=== PATIENT | male | born 1970 | race Caucasian/White ===

== ENCOUNTER 2017-09-12 09:06 | Emergency (ER) | payer OTHER, SELFPAY ==
[2017-09-12 09:06] VITALS: BP 129/80; PULSE 84; RESP 14; TEMP 36.1; BMI 31.5
--- NOTE | 2017-09-12 09:24 | RAD_ITS ---
STUDY: X-RAY - LEFT HAND, ATTENTION FIFTH FINGER REASON FOR EXAM: Male, 47 years old. Crush injury. TECHNIQUE: 3 view(s) of the finger were obtained. COMPARISON: None. FINDINGS: Normal metacarpal head. Normal metacarpophalangeal joint. Normal proximal phalanx. Normal middle phalanx. Normal distal phalanx. Normal proximal interphalangeal joint. Normal distal interphalangeal joint. Soft tissue injury. RAD/Finger(s) Min 2 Views IMPRESSION: Soft tissue injury. No fracture or dislocation is seen. Electronically Signed: Erik Barahona MD at 10:40 EST Tel [phone], Service support ,
[2017-09-12] MEDS: Diphth,Pertuss(Acell),Tet Vac 0.5 ML Vial IM (09:37)
--- NOTE | 2017-09-12 10:02 | ED.VISSUMM ---
- ER Visit Summary Date of Service: 09/12/17 Chief Complaint: Injury volar surface left little finger History of Present Illness: The patient is a 47 M is right-handed presents with injury to the left little finger. This occurred at work. Immunizations unknown. He denies paresthesia, anesthesia or motor weakness. He denies any allergies. Physical Examination: There is evulsion of the epidermis on the volar surface of the left little finger. There is a superficial laceration less than 0.5 cm. There is no subungual hematoma. The extensor minimize tendon is intact. The flexor digitorum superficialis and flexor digitorum profundus are intact. Capillary refill is normal. Sensation is normal. Test Results: Three-view x-ray of the left little finger was obtained interpreted by me as negative for fracture. There is soft tissue defect noted. Emergency Department Course and Treatment: Immunization for tetanus and wound care Treatment Plan: Follow-up with corporate care Disposition: Discharge to home Impression: Crush injury left little finger with superficial avulsion and small laceration, initial encounter This note was generated with [email or web address] dictation software. It may contain incorrect words, spelling, and punctuation that were not noted in review of the chart prior to signing ED Disposition - Plan for ED Patient: Disposition: Home or Assisted Living Chief Complaint: Trauma Instructions: ED Laceration Small Superf No Sutr Referrals: Reno Michelle MD [Primary Care Provider] - [facility] [GROUP OF PHYSICIANS] - 2 Days for wound check
== END 2017-09-12 10:49 | disposition home or self-care (01) ==
PROVIDERS: Emergency Provider Emergency Medicine; Family Provider Family Medicine; PCP Family Medicine
DX: S67.197A Crushing injury of left little finger, initial encounter (principal); S61.217A Laceration without foreign body of left little finger without damage to nail, initial encounter; W23.0XXA Caught, crushed, jammed, or pinched between moving objects, initial encounter; Y93.9 Activity, unspecified; Y92.89 Other specified places as the place of occurrence of the external cause; Y99.0 Civilian activity done for income or pay; Z23 Encounter for immunization
CPT/HCPCS: 73140; 90715; 99282

== ENCOUNTER 2018-01-23 20:49 | Emergency (ER) | payer OTHER, SELFPAY ==
[2018-01-23 20:49] VITALS: BP 132/92; PULSE 95; RESP 16; TEMP 35.8; O2SAT 99; BMI 30.2
[2018-01-23 22:40] VITALS: PULSE 88; RESP 16; O2SAT 98
--- NOTE | 2018-01-24 00:07 | ED.DEP ---
ED Disposition - Plan for ED Patient: Chief Complaint: Eye Problem Instructions: ED Foreign Body Cornea, ED Eye Injury Corneal Abrasion Prescriptions: Erythromycin Ophthalmic 1 applic RIGHT EYE 4X/DAY #1 opth.tube Referrals: Avery Slater MD [STAFF PHYSICIAN] - 2 Days
--- NOTE | 2018-01-24 00:12 | ED.DCSUM_ITS ---
- ER Visit Summary Date of Service: 01/24/18 Chief Complaint: [Right eye foreign body] History of Present Illness: The patient is a 47 M [who presents the emergency department with foreign body in his right eye. He was grinding metal today. He denies any blurry vision she is very irritated. His tetanus is up-to-date. He has had this happen several times in the past. Usually goes to [facility] and they take it out with a needle.] Physical Examination: [] Examination of the right eye reveals conjunctival injection. Pupils are equal and reactive extraocular eye movements are intact without pain. Anterior chambers deep and quiet. He has 3 punctate pieces of metal in the cornea No evidence of globe rupture Test Results: [] Emergency Department Course and Treatment: [Tetracaine was instilled in the right eye. 2 of the pieces of metal were removed with cotton Q-tip. One small piece of metal was removed with a TB needle. Patient's eye was irrigated. He was given erythromycin ophthalmic. The importance of outpatient follow-up was discussed.] Treatment Plan: [] Disposition: [Discharge] Impression: [. Foreign body right eye 2. Corneal abrasion right eye] This note was generated with [employer] dictation software. It may contain incorrect words, spelling, and punctuation that were not noted in review of the chart prior to signing ED Disposition - Plan for ED Patient: Chief Complaint: Eye Problem Instructions: ED Eye Injury Corneal Abrasion, ED Foreign Body Cornea Prescriptions: Erythromycin Ophthalmic 1 applic RIGHT EYE 4X/DAY #1 opth.tube Referrals: Avery Slater MD [STAFF PHYSICIAN] - 2 Days
[2018-01-24] MEDS: Tetracaine 0.5% Ophthalmic Bottle 1 DRP RIGHT EYE (00:18)
[2018-01-24] MEDS: Erythromycin Base 1 OPTH.TUBE 1 APPLIC RIGHT EYE (00:18)
[2018-01-24 00:19] VITALS: RESP 18
== END 2018-01-24 00:19 | disposition home or self-care (01) ==
LOC: ED 01-24 00:08
PROVIDERS: Emergency Provider Emergency Medicine; Family Provider Family Medicine; PCP Family Medicine
DX: T15.01XA Foreign body in cornea, right eye, initial encounter (principal); X58.XXXA Exposure to other specified factors, initial encounter; Y93.9 Activity, unspecified; Y92.9 Unspecified place or not applicable; Y99.9 Unspecified external cause status; Z79.899 Other long term (current) drug therapy
CPT/HCPCS: 99283

== ENCOUNTER 2020-03-07 23:08 | Emergency (ER) | payer OTHER, SELFPAY ==
[2020-03-07 23:08] VITALS: BMI 31.5
[2020-03-07 23:09] VITALS: BP 143/104; PULSE 79; RESP 15; TEMP 36.3; O2SAT 100; BMI 30.2
[2020-03-07] MEDS: Tetracaine 0.5% Ophthalmic Bottle 1 DRP LEFT EYE (23:57)
[2020-03-07] MEDS: Fluorescein 1 MG STRIP 1 STRIP LEFT EYE (23:57)
--- NOTE | 2020-03-08 00:21 | ED.DCSUM_ITS ---
History of Present Illness Chief Complaint: Eye Problem Informant: Patient Narrative: Patient presents with left eye foreign body sensation that started earlier today he was around a person who was grinding metal. He has no other injury. Past Medical History - Allergies and Home Meds Allergies/Adverse Reactions: Allergies mushroom Allergy (Verified 03/07/20 23:12) Swelling Primary Care Physician: Reno Michelle MD [Primary Care Provider] - Past Medical History: - - Noncontributory Smoking Status: Never smoker Review of Systems Eyes: Reports: - - Left eye foreign body sensation ENT: Denies: Sore throat Gastrointestinal: Reports: Abdominal pain, Vomiting. Denies: Nausea Musculoskeletal: Reports: Myalgias, Neck pain Neurological: Denies: Weakness Hematologic: Denies: Easy bruising Allergy: Denies: Swelling of the mouth Physical Exam Vital Signs/Narrative: Vital Signs Temp Pulse Resp BP Pulse Ox 03/07/20 23:09 97.3 F L 79 15 143/104 H 100 General: Well nourished, Well developed Head: Normocephalic Eyes: - - Conjunctival injection. Otherwise there is a punctate metallic foreign body lateral to the pupil on the left. ENT: Moist mucous membranes, No rhinorrhea Cardiovascular: Regular rate Respiratory: No distress Extremities: No edema Skin: Normal color, No rash Neurological: Cranial nerves II-XII grossly intact Diagnostic/Tx/Re-eval - Medical Decision Making Patient will be discharged to follow-up with ophthalmology he is told to follow- up either Tuesday or Tuesday it is now Tuesday night. Otherwise if he has worsening redness or vision changes he is to return right away. Procedures Procedure(s): Corneal foreign body removal. After tetracaine was instilled and patient consent was obtained verbally I used an 18-gauge needle and removed the foreign body. Evaluation afterwards showed a small rust ring which I also removed with the 18-gauge needle. Slit-lamp examination. I used a slit lamp after tetracaine, no residual foreign body. I used fluorescein and there is uptake and a corneal abrasion in place of the corneal foreign body. ED Disposition - Plan for ED Patient: Diagnosis: Corneal foreign body, Corneal abrasion Instructions: ED Corneal Abrasion, ED EYE FOREIGN BODY Corneal Referrals: Jai Edgar MD [STAFF PHYSICIAN] - 3-5 Days
[2020-03-08] MEDS: BACITRACIN 15 GM Tube 1 APPLIC TOPICAL (00:37)
[2020-03-08 00:41] VITALS: BP 138/89; PULSE 70; RESP 16; O2SAT 99
== END 2020-03-08 00:41 | disposition home or self-care (01) ==
PROVIDERS: Emergency Provider Emergency Medicine; PCP Family Medicine
DX: T15.02XA Foreign body in cornea, left eye, initial encounter (principal); X58.XXXA Exposure to other specified factors, initial encounter; Y93.9 Activity, unspecified; Y92.9 Unspecified place or not applicable; Y99.9 Unspecified external cause status; Z79.899 Other long term (current) drug therapy
CPT/HCPCS: 99282